=== PATIENT | female | born 1940 | race Two or more races ===

== ENCOUNTER → 2018-05-07 | Outpatient (CLI) | payer OTHER ==
[~2018-05-07] MED LIST: CLARITIN-D1 TAB.SR .; CLONAZEPAM0.5 MG; PRILOSEC10 MG; SINGULAIR10 MG
== END | disposition home or self-care (01) ==
LOC: LAB 10:43
DX: M15.0 Primary generalized (osteo)arthritis (principal); M54.5 Low back pain; N39.0 Urinary tract infection, site not specified; I10 Essential (primary) hypertension; R82.79 Other abnormal findings on microbiological examination of urine

== ENCOUNTER 2018-05-15 15:10 | Outpatient (CLI) | payer OTHER | END 2018-05-15 15:17 | disposition home or self-care (01) | LOC: MAMO-SONO 15:10 | DX: Z12.31 Encounter for screening mammogram for malignant neoplasm of breast (principal); Z87.898 Personal history of other specified conditions; N60.11 Diffuse cystic mastopathy of right breast ==

== ENCOUNTER 2018-05-15 16:11 | Outpatient (CLI) | payer OTHER | END 2018-05-15 16:18 | disposition home or self-care (01) | LOC: LAB 16:11 | DX: N30.00 Acute cystitis without hematuria (principal) ==

== ENCOUNTER 2018-12-06 19:18 | Emergency (ER) | payer OTHER ==
[~2018-12-06] VITALS: Ht 152.4 cm; Wt 64.4 kg
[2018-12-06] MEDS ORDERED: PROTONIX40 M1 PO (19:22)
[2018-12-06] MEDS ORDERED: PEPCID AC20 MG PO (19:23)
[2018-12-06] MEDS ORDERED: CLONAZEPAM0.5 M1 PO (19:26)
== END 2018-12-06 20:25 | disposition home or self-care (01) ==
LOC: ER 19:18
DX: R06.02 Shortness of breath (principal); F41.8 Other specified anxiety disorders

== ENCOUNTER 2019-01-17 15:11 | Outpatient (CLI) | payer OTHER ==
[~2019-01-17 15:11] MED LIST changes: +CLONAZEPAM0.5 M1 PO; +PEPCID AC20 MG PO; +PROTONIX40 M1 PO
== END 2019-01-17 15:21 | disposition home or self-care (01) ==
LOC: RAD 15:11
DX: M11.221 Other chondrocalcinosis, right elbow (principal)

== ENCOUNTER 2019-06-18 17:44 | Emergency (ER) | payer OTHER ==
[~2019-06-18] VITALS: Ht 157.5 cm; Wt 52.2 kg
== END 2019-06-18 20:45 | disposition home or self-care (01) ==
LOC: ER 17:44
DX: R06.02 Shortness of breath (principal)

== ENCOUNTER 2019-07-24 13:25 | Emergency (ER) | payer OTHER ==
[~2019-07-24] VITALS: Ht 152.4 cm; Wt 50.3 kg
== END 2019-07-24 16:37 | disposition home or self-care (01) ==
LOC: ER 13:25
DX: K21.9 Gastro-esophageal reflux disease without esophagitis (principal)

== ENCOUNTER 2019-07-31 12:50 | Outpatient (CLI) | payer OTHER | END 2019-07-31 16:11 | disposition home or self-care (01) | LOC: RAD 12:50 | DX: R10.84 Generalized abdominal pain (principal) ==

== ENCOUNTER 2019-10-27 09:25 | Outpatient (CLI) | payer OTHER | END 2019-10-27 09:39 | disposition home or self-care (01) | LOC: SONOGRAMA 09:25 | DX: R10.84 Generalized abdominal pain (principal) ==

== ENCOUNTER 2019-11-04 16:05 | Outpatient (CLI) | payer OTHER | END 2019-11-05 16:07 | disposition home or self-care (01) | LOC: LAB 16:05 | DX: N30.00 Acute cystitis without hematuria (principal) ==

== ENCOUNTER → 2019-11-04 | Outpatient (CLI) | payer OTHER | END | disposition home or self-care (01) | LOC: MAMO-SONO 12:41 | DX: Z12.31 Encounter for screening mammogram for malignant neoplasm of breast (principal); Z87.898 Personal history of other specified conditions; N60.11 Diffuse cystic mastopathy of right breast ==

== ENCOUNTER 2020-05-28 08:25 | Outpatient (CLI) | payer OTHER | END 2020-05-28 08:32 | disposition home or self-care (01) | LOC: SONOGRAMA 08:25 → MAMO-SONO 08:45 | PROVIDERS: ATTEND Internal Medicine Gastroenterology | DX: R10.84 Generalized abdominal pain (principal) ==

== ENCOUNTER → 2020-05-29 08:40 | Outpatient (CLI) | payer OTHER | END | disposition home or self-care (01) | LOC: LAB 08:40 | PROVIDERS: ATTEND Internal Medicine Gastroenterology | DX: D68.8 Other specified coagulation defects (principal); D64.89 Other specified anemias; Z12.11 Encounter for screening for malignant neoplasm of colon; Z11.2 Encounter for screening for other bacterial diseases; R10.13 Epigastric pain ==

== ENCOUNTER 2020-05-31 11:14 | Outpatient (CLI) | payer OTHER | END 2020-05-31 13:02 | disposition home or self-care (01) | LOC: LAB 11:14 | PROVIDERS: ATTEND Internal Medicine Gastroenterology | DX: D68.8 Other specified coagulation defects (principal); D64.89 Other specified anemias; Z12.11 Encounter for screening for malignant neoplasm of colon; Z11.2 Encounter for screening for other bacterial diseases ==

== ENCOUNTER 2020-11-08 13:50 | Outpatient (CLI) | payer OTHER | END 2020-11-08 14:10 | disposition home or self-care (01) | LOC: MAMO-SONO 13:50 | PROVIDERS: ATTEND Obstetrics & Gynecology | DX: Z12.31 Encounter for screening mammogram for malignant neoplasm of breast (principal); N60.11 Diffuse cystic mastopathy of right breast ==

== ENCOUNTER 2021-05-24 23:33 | Emergency (ER) | payer OTHER ==
[~2021-05-24] VITALS: Ht 160 cm; Wt 41.3 kg
[2021-05-25] MEDS ORDERED: CENTRUM SILVER1 EAC2 PO (00:59)
[2021-05-25] MEDS ORDERED: LORATADINE10 MG PO (01:00)
[2021-05-25] MEDS ORDERED: ZINC OXIDE60 GM TOP (01:00)
[2021-05-25] MEDS ORDERED: FAMOTIDINE20 MG PO (01:00)
[2021-05-25] MEDS ORDERED: LEVOFLOXACIN500 MG PO (13:45)
== END 2021-05-25 | disposition home or self-care (01) ==
LOC: ER 23:33
DX: N39.0 Urinary tract infection, site not specified (principal); R31.29 Other microscopic hematuria; N32.89 Other specified disorders of bladder; R10.13 Epigastric pain

== ENCOUNTER 2022-01-11 12:18 | Outpatient (CLI) | payer OTHER ==
[~2022-01-11 12:18] MED LIST changes: +CENTRUM SILVER1 EAC2 PO; +FAMOTIDINE20 MG PO; +LEVOFLOXACIN500 MG PO; +LORATADINE10 MG PO; +ZINC OXIDE60 GM TOP
== END 2022-01-11 14:07 | disposition home or self-care (01) ==
LOC: MAMO-SONO 12:18
PROVIDERS: ATTEND Obstetrics & Gynecology
DX: N60.11 Diffuse cystic mastopathy of right breast (principal)

== ENCOUNTER 2022-04-08 16:20 | Emergency (ER) | payer OTHER ==
[~2022-04-08] VITALS: Ht 160 cm; Wt 43.1 kg
[2022-04-08] MEDS ORDERED: CARBIDOPA-LEVO1 EA10 (17:57)
[2022-04-08] MEDS ORDERED: PROTONIX20 MG PO ×2 (17:57→21:05)
[2022-04-08] MEDS ORDERED: PEPCID AC20 MG PO (21:05)
[2022-04-08] MEDS ORDERED: CARAFATE1 GM PO (21:05)
[2022-04-08] MEDS ORDERED: PREVIDENT 5000100 ML DT (21:15)
== END 2022-04-08 21:32 | disposition home or self-care (01) ==
LOC: ER 16:20
DX: K21.9 Gastro-esophageal reflux disease without esophagitis (principal); Z88.0 Allergy status to penicillin

== ENCOUNTER 2023-03-04 05:10 | Inpatient (IN) | payer OTHER ==
[~2023-03-04] VITALS: Ht 152.4 cm; Wt 40.8 kg
[~2023-03-04 05:10] MED LIST changes: +CARAFATE1 GM PO; +CARBIDOPA-LEVO1 EA10; +PREVIDENT 5000100 ML DT; +PROTONIX20 MG PO
[2023-03-04] MEDS ORDERED: PLAVIX75 MG (05:15)
--- NOTE | 2023-03-04 05:40 | NUR ---
SE RECIBE PTE ALERTA Y ORIENTADA X3 EN AMBULANCIA LA CUAL REFIERE VENIR POR DOLOR DE PECHO, DIFICULTAD RESPIRATORIA Y NAUSEAS DESDE LA NOCHE DE HOY. SE MIDEN S/V A PTE Y SE REALIZA EKG A PTE. PTE SE COLOCA EN UNIDAD DE CRITICO, SE CONECTA A MONITOR CARDIACO CON OXIMETRIA CONTINUA.
--- NOTE | 2023-03-04 06:39 | NUR ---
PTE ES RECIBIDA EN AMBULANCIA. PTE ES EVALUADA POR DR JOVEL. SE ORIENTA A PTE Y VERBALIZA QUE ACCEPTA TRATAMIENTO. SE EJECUTA ORDEN MEDICA EN LAZCANO TOTALIDAD.
--- NOTE | 2023-03-04 07:42 | NUR ---
SE RECIBE PACIENTE DEL TURNO ANTERIOR, LA MISMA SE ENCUENTRA EN CAMA CON BARADAS ELEVADAS POR PRECAUCION A CAIDAS, CONECTADA A MONITOR CARDIACO Y OXIMETRIA DE PULSO. AL MOMENTO PACIENTE ALERTA Y ORIENTADA X3, SE LE ORIENTA SOBRE CONTINUIDAD DE TX Y VERBALIZA ENTENDER, SE OBSERVA CANALIZADA CON VENOPUNCION PATENTE Y RECIENBDO IV FLUIDS TATIANNA ORDEN. SE MANTIENE PACIENTE BAJO OBSERVACION POR CAMBIOS EN TX MEDICO.
== END 2023-03-10 13:38 | disposition home or self-care (01) | DRG 309 ==
LOC: ER 05:10 → MEDI 10:45
PROVIDERS: ADMIT Internal Medicine; ATTEND Internal Medicine
PROC: B24BZZZ Ultrasonography of Heart with Aorta (ICD-10-PCS; principal; 2023-03-04)
PROC: BW21ZZZ Computerized Tomography (CT Scan) of Abdomen and Pelvis (ICD-10-PCS; 2023-03-04)
PROC: BW24ZZZ Computerized Tomography (CT Scan) of Chest and Abdomen (ICD-10-PCS; 2023-03-04)
PROC: 4A12X4Z Monitoring of Cardiac Electrical Activity, External Approach (ICD-10-PCS; 2023-03-04)
DX: I48.20 Chronic atrial fibrillation, unspecified (principal); I31.39 Other pericardial effusion (noninflammatory); I31.9 Disease of pericardium, unspecified; G20 Parkinson's disease; K21.9 Gastro-esophageal reflux disease without esophagitis; F41.9 Anxiety disorder, unspecified; J44.9 Chronic obstructive pulmonary disease, unspecified

== ENCOUNTER → 2023-04-26 | Emergency (ER) | payer OTHER ==
[~2023-04-26] VITALS: Ht 149.9 cm; Wt 39.9 kg
[~2023-04-26] MED LIST changes: +FAMOTIDINE20 MG; +PLAVIX75 MG
== END | disposition home or self-care (01) ==
LOC: ER 17:05
DX: M54.9 Dorsalgia, unspecified (principal); M25.561 Pain in right knee; V49.9XXA Car occupant (driver) (passenger) injured in unspecified traffic accident, initial encounter; Y93.89 Activity, other specified; Y92.89 Other specified places as the place of occurrence of the external cause; Y99.8 Other external cause status; Z88.0 Allergy status to penicillin

== ENCOUNTER 2023-04-30 12:44 | Outpatient (CLI) | payer OTHER | END 2023-04-30 12:57 | disposition home or self-care (01) | LOC: MAMO-SONO 12:44 | PROVIDERS: ATTEND Internal Medicine | DX: Z12.31 Encounter for screening mammogram for malignant neoplasm of breast (principal); N63.0 Unspecified lump in unspecified breast ==

== ENCOUNTER 2023-11-09 11:10 | Outpatient (CLI) | payer OTHER ==
[2023-11-09 12:10] LABS: HEMOGLOBIN 12.3 g/dL (12.0-15.00); MEAN CELL VOLUME 92.3 fL (80.00-100.00); MEAN CORPUSCULAR HEMOGLOBIN 30.7 pg (27.00-32.0); MEAN CORPUSCULAR HGB CONC 33.3 g/dl (32.0-36.0); PLATELET COUNT 227 K/uL (150-450); RED CELL DISTRIBUTION WIDTH 14.8 % (11.5-14.5)
[2023-11-09 12:48] LABS: BILIRUBIN TOTAL 1.06 mg/dL (0.3-1.2); CALCIUM 9.4 mg/dL (8.5-10.1); CHOL HDL RATIO 2.5 (0-5.0); CREATININE SERUM 0.9 mg/dL (0.55-1.02); GFR 60.09; GLOBULINA 4.7 G/DL (2.4-3.5); POTASSIUM 4.59 mEq/L (3.5-5.1); TOTAL PROTEIN 8.7 gm/dL (6.4-8.2)
[2023-11-09 12:54] LABS: TSH 1.19 uIU/mL (0.358-3.74)
== END 2023-11-09 11:27 | disposition home or self-care (01) ==
LOC: LAB 11:10
PROVIDERS: ATTEND Internal Medicine
DX: I11.9 Hypertensive heart disease without heart failure (principal); E11.9 Type 2 diabetes mellitus without complications; E03.9 Hypothyroidism, unspecified; E78.2 Mixed hyperlipidemia

== ENCOUNTER → 2023-12-14 10:33 | Outpatient (CLI) | payer OTHER ==
[2023-12-14 12:42] LABS: HEMATOCRIT 37.9 % (36.0-45.00); HEMOGLOBIN 12.3 g/dL (12.0-15.00); MEAN CELL VOLUME 94.5 fL (80.00-100.00); MEAN CORPUSCULAR HEMOGLOBIN 30.7 pg (27.00-32.0); MEAN CORPUSCULAR HGB CONC 32.5 g/dl (32.0-36.0); PLATELET COUNT 192 K/uL (150-450); RED BLOOD COUNT 4.01 M/uL (4.00-6.00); RED CELL DISTRIBUTION WIDTH 14.1 % (11.5-14.5)
[2023-12-14 13:20] LABS: ALBUMIN 4.1 gm/dL (3.4-5.0); BILIRUBIN TOTAL 1.11 mg/dL (0.3-1.2); CALCIUM 9.4 mg/dL (8.5-10.1); CHOL HDL RATIO 2.7 (0-5.0); CREATININE SERUM 0.83 mg/dL (0.55-1.02); FERRITIN 21.9 NG/ML (8-252); GFR 65.98; GLOBULINA 4.6 G/DL (2.4-3.5); POTASSIUM 4.24 mEq/L (3.5-5.1); TOTAL PROTEIN 8.7 gm/dL (6.4-8.2); TSH 1.2 uIU/mL (0.358-3.74)
[2023-12-14 13:45] LABS: FOLIC ACID > 20.00 ng/ml (4.78-20); VITAMIN D3 25 HYDROXY 51.17 ng/ml (30-120)
[2023-12-14 14:39] LABS: MANUAL PLATELET COUNT 320
[2023-12-14 14:40] LABS: PLATELET ESTIMATE NORMAL (NORMAL)
== END | disposition home or self-care (01) ==
LOC: LAB 10:33
PROVIDERS: ATTEND Internal Medicine Hematology & Oncology
DX: D50.8 Other iron deficiency anemias (principal); R79.9 Abnormal finding of blood chemistry, unspecified; I10 Essential (primary) hypertension; R74.02 Elevation of levels of lactic acid dehydrogenase [LDH]; K76.89 Other specified diseases of liver; D51.1 Vitamin B12 deficiency anemia due to selective vitamin B12 malabsorption with proteinuria; D51.0 Vitamin B12 deficiency anemia due to intrinsic factor deficiency; C50.919 Malignant neoplasm of unspecified site of unspecified female breast; R97.8 Other abnormal tumor markers; C25.9 Malignant neoplasm of pancreas, unspecified; C56.9 Malignant neoplasm of unspecified ovary; R97.1 Elevated cancer antigen 125 [CA 125]; D63.1 Anemia in chronic kidney disease

== ENCOUNTER 2024-01-09 10:23 | Outpatient (CLI) | payer OTHER | END 2024-01-09 10:30 | disposition home or self-care (01) | LOC: MRI 10:23 | PROVIDERS: ATTEND Internal Medicine Hematology & Oncology | DX: D51.3 Other dietary vitamin B12 deficiency anemia (principal); I10 Essential (primary) hypertension; K21.9 Gastro-esophageal reflux disease without esophagitis; R97.8 Other abnormal tumor markers | CPT/HCPCS: 74183; Q9965; 74181 ==

== ENCOUNTER 2024-02-29 09:25 | Outpatient (CLI) | payer OTHER ==
[2024-02-29 10:59] LABS: PH,URINE 7.5 (5.0-8.0); URINE APPEARANCE Clear; URINE BILIRRUBIN Negative (NEGATIVE); URINE BLOOD Negative; URINE COLOR Yellow; URINE GLUCOSE Negative (NEGATIVE); URINE LEUKOCYTE Moderate; URINE NITRATE Negative; URINE PROTEIN Negative (NEGATIVE); URINE UROBILINOGEN 0.2 E.U./dl
[2024-02-29 11:01] LABS: HEMATOCRIT 35.3 % (36.0-45.00); HEMOGLOBIN 11.9 g/dL (12.0-15.00); MEAN CELL VOLUME 92.5 fL (80.00-100.00); MEAN CORPUSCULAR HEMOGLOBIN 31.3 pg (27.00-32.0); MEAN CORPUSCULAR HGB CONC 33.8 g/dl (32.0-36.0); PLATELET COUNT 187 K/uL (150-450); RED BLOOD COUNT 3.82 M/uL (4.00-6.00); RED CELL DISTRIBUTION WIDTH 14.2 % (11.5-14.5)
[2024-02-29 11:05] LABS: URINE BACTERIA 124.6 uL (0.0-1933); URINE EPITHELIAL CELLS 7.4 uL (0.0-38.8); URINE RBC 3.5 uL (0.0-20.8); URINE WBC 74.7 uL (0.0-23.2)
[2024-02-29 11:34] LABS: % SATURACION 18.4 % (15-50); ALBUMIN 3.9 gm/dL (3.4-5.0); BILIRUBIN TOTAL 1.17 mg/dL (0.3-1.2); CALCIUM 9.6 mg/dL (8.5-10.1); CREATININE SERUM 0.93 mg/dL (0.55-1.02); FERRITIN 19.6 NG/ML (8-252); GFR 57.72; GLOBULINA 4.5 G/DL (2.4-3.5); POTASSIUM 4.76 mEq/L (3.5-5.1); TOTAL PROTEIN 8.4 gm/dL (6.4-8.2); TSH 1.22 uIU/mL (0.358-3.74)
[2024-02-29 14:01] LABS: FOLIC ACID > 20.00 ng/ml (4.78-20)
== END 2024-02-29 09:26 | disposition home or self-care (01) ==
LOC: LAB 09:25
PROVIDERS: ATTEND Internal Medicine Hematology & Oncology
DX: D51.3 Other dietary vitamin B12 deficiency anemia (principal); I10 Essential (primary) hypertension; K21.9 Gastro-esophageal reflux disease without esophagitis; R97.8 Other abnormal tumor markers; D50.8 Other iron deficiency anemias; K76.89 Other specified diseases of liver; R74.02 Elevation of levels of lactic acid dehydrogenase [LDH]; R74.8 Abnormal levels of other serum enzymes; K86.1 Other chronic pancreatitis; C25.9 Malignant neoplasm of pancreas, unspecified; E11.9 Type 2 diabetes mellitus without complications; E78.1 Pure hyperglyceridemia

== ENCOUNTER 2024-08-12 10:14 | Outpatient (CLI) | payer OTHER ==
[2024-08-12 11:02] LABS: HEMATOCRIT 37.1 % (36.0-45.00); HEMOGLOBIN 12.2 g/dL (12.0-15.00); MEAN CELL VOLUME 93.3 fL (80.00-100.00); MEAN CORPUSCULAR HEMOGLOBIN 30.6 pg (27.00-32.0); MEAN CORPUSCULAR HGB CONC 32.8 g/dl (32.0-36.0); PLATELET COUNT 170 K/uL (150-450); RED BLOOD COUNT 3.97 M/uL (4.00-6.00); RED CELL DISTRIBUTION WIDTH 15.3 % (11.5-14.5)
[2024-08-12 11:24] LABS: INR 1.03; PARTIAL THROMBOPLASTIN TIME 27.9 SECONDS (22.0-34.0); PROTHROMBIN TIME 11.2 SECONDS (9.0-11.5)
[2024-08-12 12:12] LABS: ALBUMIN 3.8 gm/dL (3.4-5.0); BILIRUBIN TOTAL 1.03 mg/dL (0.3-1.2); CALCIUM 9.1 mg/dL (8.5-10.1); CREATININE SERUM 0.86 mg/dL (0.55-1.02); GFR 63.17; GLOBULINA 4.5 G/DL (2.4-3.5); POTASSIUM 4.71 mEq/L (3.5-5.1); TOTAL PROTEIN 8.3 gm/dL (6.4-8.2)
== END 2024-08-12 10:18 | disposition home or self-care (01) ==
LOC: LAB 10:14
PROVIDERS: ATTEND Ophthalmology
DX: D68.8 Other specified coagulation defects (principal); H25.013 Cortical age-related cataract, bilateral

== ENCOUNTER 2025-03-19 09:39 | Outpatient (CLI) | payer OTHER | END 2025-03-19 09:41 | disposition home or self-care (01) | LOC: SONOGRAMA 09:39 | PROVIDERS: ATTEND Internal Medicine Gastroenterology | DX: R10.9 Unspecified abdominal pain (principal) ==

== ENCOUNTER → 2025-08-10 10:42 | Outpatient (CLI) | payer OTHER ==
[2025-08-10 11:14] LABS: BASO % 0.5 % (0.1-1.2); EOS # 0.19 (0.04-0.54); EOS % 3.2 % (0.7-7.0); LYMPH # 1.90 (1.18-3.74); LYMPH % 31.5 % (19.3-53.1); MEAN PLATELET VOLUME 11.50 fl (9.4-12.4); MONO # 0.44 (0.24-0.82); MONO % 7.3 % (4.7-12.5); NEUT # 3.45 (1.56-6.13); NEUT % 57.2 % (34.0-71.1); RED CELL DISTRIBUTION WIDTH 14.6 % (11.6-14.4)
[2025-08-10 11:31] LABS: INR 1.03
[2025-08-10 12:09] LABS: ALT/SGPT 32.0 U/L (12-78); AST/SGOT 24.0 U/L (15-37); BILIRUBIN TOTAL 1.2 mg/dL (0.3-1.2); BUN CREA RATIO 22.0 (7.0-25.0); CREATININE SERUM 0.72 mg/dL (0.55-1.02); GFR 77.36; GLOBULINA 4.4 G/DL (2.4-3.5); GLUCOSE FASTING 76.0 mg/dL (65-100); OSMOLALITY SERUM 285.0 MOSM/KG (275-295)
== END | disposition home or self-care (01) ==
LOC: RAD 10:42
PROVIDERS: ATTEND Ophthalmology
DX: D68.8 Other specified coagulation defects (principal); Z01.811 Encounter for preprocedural respiratory examination